=== PATIENT | female | born 1965 | race Caucasian/White ===

== ENCOUNTER → 2020-10-17 08:38 | Outpatient (CLI) | payer MEDICARE, SELFPAY ==
[2020-10-17 10:00] LABS: ALB/GLOB Ratio 1.1 RATIO (0.9-2.4); AST(SGOT) 17 U/L (15-37); Alanine Aminotransfer ALT/SGPT 18 U/L (13-56); Albumin, Serum 3.7 g/dL (3.2-5.0); Alkaline Phosphatase 85 U/L (45-117); Anion Gap 9 (5-15); BUN 11 mg/dL (7-18); BUN/Creat Ratio 14.1 RATIO (10-20); Chloride 106 mmol/L (98-107); Cholesterol 196 mg/dL (200); Creatinine, Serum 0.78 mg/dL (0.55-1.02); EST Glomerular Filtration Rate 81 mL/min (>60); Est Glom Filt Rate - Afr Amer 98 mL/min (>60); Globulin 3.5 g/dL (2.2-4.2); Glucose 109 mg/dL (74-106); High Density Lipoprotein 59 mg/dL; Potassium 3.6 mmol/L (3.5-5.1); Protein, Total 7.2 g/dL (6.4-8.2); Sodium Level 141 mmol/L (136-145); Thyroid Stim Hormone (TSH) 1.35 uIU/mL (0.358-3.74); Triglycerides 146 mg/dL; Very Low Density Lipoprotein 29 mg/dL (5-40)
[2020-10-23 09:04] LABS: Trileptal-Oxcarbazepine < 1 ug/mL (10-35)
== END ==
PROVIDERS: PCP Family Medicine; Referring Provider Family Medicine; Visit Provider Family Medicine
DX: E03.9 Hypothyroidism, unspecified (principal); Z79.899 Other long term (current) drug therapy; E78.5 Hyperlipidemia, unspecified
CPT/HCPCS: 36415; 80053; 80061; 82542; 84443

== ENCOUNTER → 2020-11-20 12:07 | Outpatient (CLI) | payer MEDICARE, SELFPAY ==
--- NOTE | 2020-11-20 12:11 | BI_ITS ---
MAMMOGRAPHY - BILATERAL SCREENING REASON FOR EXAM: Female, 55 years old. Routine annual screening examination. PERTINENT HISTORY: Non-contributory. Remote right excisional breast biopsy. TECHNIQUE: Digital bilateral breast jumana (3D mammographic acquisition) in the CC and MLO projections. 2-D mediolateral oblique (MLO) and craniocaudad (CC) views of both breasts were obtained. CAD: Full Field Digital Mammography with Computer Added Detection was performed. COMPARISON: Comparison is made with prior outside examination dated 02/19/2019. FINDINGS: Breast Composition: There are scattered areas of fibroglandular density. There are no dominant masses or suspicious calcifications. No other significant abnormalities are identified. There has been no significant change since the prior study. BI/SCRN MAMM (CAD)W/JUMANA BILAT IMPRESSION: Stable bilateral screening mammogram. Yearly follow-up mammogram recommended. (A) ASSESSMENT CATEGORY: BIRADS Category 1: Negative. A letter regarding these results will be sent to the patient by the facility within 30 days. Approximately 10% of breast cancers are not detected by mammography. A normal mammogram should not delay biopsy of a clinically suspicious abnormality. [id number] Electronically Signed: Jeff Crowder MD at 13:02 EDT , Service support ,
== END ==
PROVIDERS: PCP Family Medicine; Referring Provider Family Medicine; Visit Provider Family Medicine
DX: Z12.31 Encounter for screening mammogram for malignant neoplasm of breast (principal)
CPT/HCPCS: 77063; 77067

== ENCOUNTER 2021-11-06 08:26 | Outpatient (CLI) | payer MEDICARE, SELFPAY ==
[2021-11-06 09:23] LABS: Hematocrit 40.2 % (37-47); Mean Corp Hgb Conc 34.8 g/dL (32-36); Mean Corpuscular Hgb 29.5 pg (27.0-32.0); Mean Corpuscular Volume 84.6 fL (81-99); Mean Platelet Vol. 8.7 fl (6.2-12.0); Platelet Count 287 K/mm3 (150-450); RBC Distribution Width CV 12.7 % (11.6-14.6); RBC Distribution Width SD 39.3 fl (35.1-43.9); Red Blood Count 4.75 M/mm3 (4.2-5.4); White Blood Count 4.2 K/mm3 (4.4-11.0)
[2021-11-06 10:00] LABS: ALB/GLOB Ratio 1.1 RATIO (0.9-2.4); AST(SGOT) 21 U/L (15-37); Alanine Aminotransfer ALT/SGPT 17 U/L (13-56); Albumin, Serum 4.1 g/dL (3.2-5.0); Alkaline Phosphatase 77 U/L (45-117); Anion Gap 6 (5-15); BUN 12 mg/dL (7-18); BUN/Creat Ratio 14.4 RATIO (10-20); Calcium,Total 8.4 mg/dL (8.5-10.1); Chloride 106 mmol/L (98-107); Cholesterol 202 mg/dL (200); Creatinine, Serum 0.83 mg/dL (0.55-1.02); EST Glomerular Filtration Rate 75 mL/min (>60); Est Glom Filt Rate - Afr Amer 91 mL/min (>60); Globulin 3.6 g/dL (2.2-4.2); Glucose 98 mg/dL (74-106); High Density Lipoprotein 55 mg/dL; Potassium 3.5 mmol/L (3.5-5.1); Protein, Total 7.7 g/dL (6.4-8.2); Sodium Level 137 mmol/L (136-145); Triglycerides 174 mg/dL; Very Low Density Lipoprotein 35 mg/dL (5-40)
[2021-11-06 10:03] LABS: Carbamazepine (Tegretol) 13.5 ug/mL (4.0-12.0)
== END 2021-11-06 23:59 | disposition home or self-care (01) ==
LOC: LAB 08:31
PROVIDERS: PCP Family Medicine; Visit Provider Family Medicine
DX: E78.5 Hyperlipidemia, unspecified (principal); E03.9 Hypothyroidism, unspecified; Z79.899 Other long term (current) drug therapy
CPT/HCPCS: 36415; 80053; 80061; 80156; 84443; 85027

== ENCOUNTER → 2021-12-10 | Outpatient (CLI) | payer MEDICARE, SELFPAY ==
--- NOTE | 2021-12-10 15:00 | BI_ITS ---
MAMMOGRAPHY - BILATERAL SCREENING REASON FOR EXAM: Female, 56 years old. Routine annual screening examination. PERTINENT HISTORY: Grandmother with breast cancer. TECHNIQUE: Digital bilateral breast jumana (3D mammographic acquisition) in the CC and MLO projections. 2-D mediolateral oblique (MLO) and craniocaudad (CC) views of both breasts were obtained. CAD: Full Field Digital Mammography with Computer Added Detection was performed. COMPARISON: Comparison is made with prior study dated 11/20/2020. FINDINGS: Breast Composition: There are scattered areas of fibroglandular density. There are no dominant masses or suspicious calcifications. Stable benign appearing bilateral axillary nodes. No other significant abnormalities are identified. There has been no significant change since the prior study. BI/SCRN MAMM (CAD)W/JUMANA BILAT IMPRESSION: Stable bilateral screening mammogram. Yearly follow-up mammogram recommended. (A) ASSESSMENT CATEGORY: BIRADS Category 2: Benign. A letter regarding these results will be sent to the patient by the facility within 30 days. Approximately 10% of breast cancers are not detected by mammography. A normal mammogram should not delay biopsy of a clinically suspicious abnormality. [id number] Electronically Signed: Jeff Crowder MD at 8:16 EDT ,
== END | disposition home or self-care (01) ==
LOC: OPBI 14:50
PROVIDERS: PCP Family Medicine; Referring Provider Family Medicine; Visit Provider Family Medicine
DX: Z12.31 Encounter for screening mammogram for malignant neoplasm of breast (principal)
CPT/HCPCS: 77063; 77067

== ENCOUNTER → 2022-02-05 | Outpatient (CLI) | payer MEDICARE, SELFPAY ==
[2022-02-05 18:25] LABS: ALB/GLOB Ratio 1.2 RATIO (0.9-2.4); AST(SGOT) 17 U/L (15-37); Alanine Aminotransfer ALT/SGPT 17 U/L (13-56); Albumin, Serum 3.8 g/dL (3.2-5.0); Alkaline Phosphatase 75 U/L (45-117); Anion Gap 7 (5-15); BUN 21 mg/dL (7-18); BUN/Creat Ratio 27.5 RATIO (10-20); Calcium,Total 9.1 mg/dL (8.5-10.1); Chloride 108 mmol/L (98-107); Creatinine, Serum 0.76 mg/dL (0.55-1.02); EST Glomerular Filtration Rate 83 mL/min (>60); Est Glom Filt Rate - Afr Amer 100 mL/min (>60); Globulin 3.3 g/dL (2.2-4.2); Glucose 109 mg/dL (74-106); Potassium 3.8 mmol/L (3.5-5.1); Protein, Total 7.1 g/dL (6.4-8.2); Sodium Level 139 mmol/L (136-145)
== END | disposition home or self-care (01) ==
LOC: LAB 16:22
PROVIDERS: PCP Family Medicine; Visit Provider Family Medicine
DX: R79.89 Other specified abnormal findings of blood chemistry (principal); D72.819 Decreased white blood cell count, unspecified; Z79.899 Other long term (current) drug therapy
CPT/HCPCS: 36415; 80053

== ENCOUNTER 2022-03-06 13:35 | Emergency (ER) | payer MEDICARE, SELFPAY ==
[2022-03-06 13:37] VITALS: BP 128/69; PULSE 90; RESP 15; TEMP 35.8; O2SAT 98; BMI 27.3
--- NOTE | 2022-03-06 13:53 | RAD_ITS ---
STUDY: X-RAY CHEST REASON FOR EXAM: Female, 56 years old. Cough, shortness of breath TECHNIQUE: Single frontal view of the chest. COMPARISON: None. FINDINGS: The lungs are clear and expanded. There is no demonstrated pleural abnormality. Normal size heart. Normal mediastinum and hayn. Normal visualized pulmonary arteries. Normal visualized aortic arch and descending thoracic aorta. Normal visualized thoracic spine. Normal visualized ribs, clavicles, and shoulders. There is no demonstrated abnormality of the visualized soft tissue structures of the upper abdomen. RAD/Chest 1 View (Portable) IMPRESSION: Normal x-ray examination of the chest. Electronically Signed: Ailyn Zimmer MD at 14:33 EDT ,
--- NOTE | 2022-03-06 13:56 | EDS_ITS ---
HPI History of Present Illness Chief Complaint: Cough Informant: patient Onset/Context/Timing Onset: Days (4 days) Context: Gradual Onset Current Severity: Mild Maximum Severity: Mild Narrative Narrative: Patient presents secondary to cough, sore throat, shortness of breath. Patient states that 2 months ago she got the shingles shot and had nausea and vomiting after this. On Tuesday, 3 days ago, she got the second shingles shot. She again developed nausea and vomiting but this time also developed congestion, sore throat, cough. She does have history of asthma but states she does not have any more albuterol solution for her nebulizer. She tried using her albuterol MDI a couple times each day but states it was not helping her. [facility] Medical History Asthma Brain aneurysm Home Medications albuterol sulfate 2.5 mg/3 mL (0.083 %) solution for nebulization 2.5 mg (3 mL) inhalation Q4H PRN #25 vials 03/06/22 [Rx Last Taken Unknown] prednisone 20 mg tablet 40 mg PO DAILY #8 tabs 03/06/22 [Rx Last Taken Unknown] Allergy/AdvReac Type Severity Reaction Status Date / Time Penicillins [PCN] Allergy Anaphylaxis Verified 03/06/22 13:37 Sulfa (Sulfonamide Allergy Rash Verified 03/06/22 13:37 Antibiotics) erythromycin base AdvReac Upset Verified 03/06/22 13:37 Stomach Surgical History H/O brain surgery Social History Smoking Status: Never smoker ROS ROS ED Constitutional Constitutional ED: Denies chills or fever(s) Eyes Eyes: Denies change in vision or discharge from eye(s) ENT ENT ED: Reports sore throat and other Details: Congestion ; Denies discharge from eye(s) or rhinorrhea Cardiovascular Cardiovascular: Reports other Details: Lungs feel tight ; Denies chest pain or palpitations Respiratory/Chest Respiratory/Chest: Reports cough and dyspnea Gastrointestinal Gastrointestinal: Denies abdominal pain, diarrhea, nausea or vomiting Genitourinary Genitourinary ED: Denies difficulty urinating or dysuria Musculoskeletal Musculoskeletal: Denies back pain or extremity pain Integumentary Denies Abrasions or rash Neurologic Neurologic: Denies headache(s) or weakness Psychiatric Psychiatric: Denies anxiety or depression Allergic/Immunologic Allergic/Immunologic ED: Denies lip swelling or urticaria EXAM Physical Exam Const Vital Signs: 03/06/22 13:37 03/06/22 14:01 03/06/22 14:07 Temperature 96.4 F L Temperature Source Temporal Pulse Rate 90 88 Respiratory Rate 15 20 H Respiratory Effort Short of Breath Respiratory Depth Normal Respiratory Pattern Normal Normal Blood Pressure 128/69 H Blood Pressure Mean 88 Pulse Ox 98 Oxygen Delivery Method Room Air Room Air 03/06/22 15:37 03/06/22 16:00 Temperature Temperature Source Pulse Rate 96 Respiratory Rate 20 H Respiratory Effort Respiratory Depth Respiratory Pattern Normal Blood Pressure Blood Pressure Mean Pulse Ox 96 Oxygen Delivery Method Room Air Positive well nourished and well developed General Appearance ED: well developed HEENT Reports normocephalic and head/scalp atraumatic Eyes PERRL and EOMs intact bilaterally Neck supple Chest Wall inspection of chest normal and palpation of chest normal Resp normal respiratory effort and clear to auscultation bilaterally Cardio regular rate and regular rhythm GI non-tender Auscultation: hypoactive bowel sounds Palpation: soft Back/Spine no CVA tenderness Extremity normal to inspection Neuro oriented x3 and no sensory deficits noted Sensorium / Orientation: alert Motor Exam: strength 5/5 throughout Psych mental status grossly normal Skin no rashes or lesions noted MDM MDM MDM Narrative Medical decision making narrative: Patient was given DuoNeb treatment. COVID swab ordered along with portable chest x-ray. Radiography Chest X-Ray - ED: 1 View, Read by ED Physician, Normal, Heart, Lungs and Mediastinum Diagnostic Testing: Clinical Impression(s) from Imaging Studies Chest X-Ray 03/06/22 13:53 IMPRESSION: Normal x-ray examination of the chest. Electronically Signed: Ailyn Zimmer MD at 14:33 EDT , Treatment and Re-Evaluation Narrative: Purple chest x-ray per my interpretation reveals no focal infiltrate. Radiology interpretation is reviewed. COVID swab is negative. Patient advised nursing staff that she did feel better after the DuoNeb treatment but felt that she needed a couple more treatments. 2 additional albuterol treatments were given. At this time patient does feel improved. Lungs remain clear. She does feel slightly shaky from the albuterol. She will be given 4 additional days of prednisone and albuterol solution for her nebulizer. Discharge Plan Triage Chief Complaint: Cough ED Provider: Priscila Cruz Dx/Rx/DC Orders Clinical Impression: Viral URI, Asthma exacerbation Instructions: ED Asthma, Acute (Adult), ED URI, Viral, No Abx (Adult) Prescriptions: New albuterol sulfate 2.5 mg /3 mL (0.083 %) solution for nebulization 2.5 mg inhalation Q4H PRN Qty: 25 0RF Rx Instructions: Use q4 hours and PRN for wheezing prednisone 20 mg tablet 40 mg PO DAILY Qty: 8 0RF Primary Care Provider: Shima Andujar Referrals: Shima Andujar, [Primary Care Provider] - 3-5 Days if not improving Disposition Disposition: Home, Self Care
[2022-03-06 14:01] VITALS: PULSE 88; RESP 20
[2022-03-06] MEDS: Ipratropium/Albuterol Sulfate 3 ML AMPUL.NEB INHALATION (14:01)
[2022-03-06 14:07] VITALS: O2SAT 98
[2022-03-06] MEDS: predniSONE 20 MG Tablet 40 MG PO (14:09)
[2022-03-06 15:37] VITALS: PULSE 96; RESP 20
[2022-03-06] MEDS: Albuterol 2.5 MG/3 ML VIAL.NEB. INHALATION (15:37)
[2022-03-06 16:00] VITALS: O2SAT 96
== END 2022-03-06 16:49 | disposition home or self-care (01) ==
PROVIDERS: Emergency Provider Emergency Medicine; PCP Family Medicine; Visit Provider Emergency Medicine
DX: J06.9 Acute upper respiratory infection, unspecified (principal); J45.901 Unspecified asthma with (acute) exacerbation
CPT/HCPCS: 71045; 87811; 94640; 99283

== ENCOUNTER → 2022-04-08 | Outpatient (CLI) | payer MEDICARE, SELFPAY ==
[2022-04-08 16:20] LABS: Hematocrit 38.4 % (37-47); Hemoglobin 13.1 g/dL (12.0-15.0); Mean Corp Hgb Conc 34.1 g/dL (32-36); Mean Corpuscular Hgb 29.6 pg (27.0-32.0); Mean Corpuscular Volume 86.7 fL (81-99); Mean Platelet Vol. 8.7 fl (6.2-12.0); Platelet Count 286 K/mm3 (150-450); RBC Distribution Width CV 12.6 % (11.6-14.6); RBC Distribution Width SD 40.1 fl (35.1-43.9); Red Blood Count 4.43 M/mm3 (4.2-5.4)
[2022-04-08 19:32] LABS: Carbamazepine (Tegretol) 11.2 ug/mL (4.0-12.0)
== END | disposition home or self-care (01) ==
LOC: LAB 15:56
PROVIDERS: PCP Family Medicine; Referring Provider Family Medicine; Visit Provider Family Medicine
DX: R78.89 Finding of other specified substances, not normally found in blood (principal); D72.819 Decreased white blood cell count, unspecified
CPT/HCPCS: 36415; 80156; 85027

== ENCOUNTER → 2022-11-11 | Outpatient (CLI) | payer MEDICARE, SELFPAY ==
[2022-11-11 08:45] LABS: Hematocrit 39.1 % (37-47); Hemoglobin 13.4 g/dL (12.0-15.0); Mean Corp Hgb Conc 34.3 g/dL (32-36); Mean Corpuscular Hgb 29.5 pg (27.0-32.0); Mean Corpuscular Volume 85.9 fL (81-99); Mean Platelet Vol. 8.9 fl (6.2-12.0); Platelet Count 245 K/mm3 (150-450); RBC Distribution Width CV 12.4 % (11.6-14.6); RBC Distribution Width SD 38.7 fl (35.1-43.9); Red Blood Count 4.55 M/mm3 (4.2-5.4); White Blood Count 4.4 K/mm3 (4.4-11.0)
[2022-11-11 09:34] LABS: ALB/GLOB Ratio 1.3 RATIO (0.9-2.4); AST(SGOT) 20 U/L (15-37); Alanine Aminotransfer ALT/SGPT 18 U/L (13-56); Alkaline Phosphatase 81 U/L (45-117); Anion Gap 6 (5-15); BUN 24 mg/dL (7-18); BUN/Creat Ratio 27.6 RATIO (10-20); Calcium,Total 9.1 mg/dL (8.5-10.1); Chloride 107 mmol/L (98-107); Cholesterol 177 mg/dL (200); Creatinine, Serum 0.87 mg/dL (0.55-1.02); EST Glomerular Filtration Rate 71 mL/min (>60); Est Glom Filt Rate - Afr Amer 86 mL/min (>60); Globulin 3.1 g/dL (2.2-4.2); Glucose 111 mg/dL (74-106); High Density Lipoprotein 61 mg/dL; Potassium 3.5 mmol/L (3.5-5.1); Protein, Total 7.1 g/dL (6.4-8.2); Sodium Level 137 mmol/L (136-145); T4 Free Direct 1.19 ng/dL (0.76-1.46); Thyroid Stim Hormone (TSH) 1.73 uIU/mL (0.358-3.74); Triglycerides 137 mg/dL; Very Low Density Lipoprotein 27 mg/dL (5-40)
[2022-11-11 11:57] LABS: Carbamazepine (Tegretol) 12.6 ug/mL (4.0-12.0)
[2022-11-14 15:07] LABS: Vitamin D 1,25-Dihydroxy 59.1 pg/mL (24.8-81.5)
== END | disposition home or self-care (01) ==
PROVIDERS: PCP Family Medicine; Visit Provider Family Medicine
DX: E03.9 Hypothyroidism, unspecified (principal); Z79.899 Other long term (current) drug therapy; E78.5 Hyperlipidemia, unspecified; F41.9 Anxiety disorder, unspecified
CPT/HCPCS: 36415; 80053; 80061; 80156; 82652; 84439; 84443; 84481; 85027

== ENCOUNTER → 2023-01-03 | Outpatient (CLI) | payer MEDICARE, SELFPAY ==
--- NOTE | 2023-01-03 14:39 | BI_ITS ---
MAMMOGRAPHY - BILATERAL SCREENING REASON FOR EXAM: Female, 57 years old. Routine annual screening examination. PERTINENT HISTORY: Grandmother with breast cancer. Remote right excisional breast biopsy. TECHNIQUE: Digital bilateral breast jumana (3D mammographic acquisition) in the CC and MLO projections. 2-D mediolateral oblique (MLO) and craniocaudad (CC) views of both breasts were obtained. CAD: Full Field Digital Mammography with Computer Added Detection was performed. COMPARISON: Comparison is made with prior study dated December 10, 2021 and November 20, 2020. FINDINGS: Breast Composition: There are scattered areas of fibroglandular density. There are no dominant masses or suspicious calcifications. Benign appearing fat-containing axillary lymph nodes. No other significant abnormalities are identified. There has been no significant change since the prior study. BI/SCRN MAMM (CAD)W/JUMANA BILAT IMPRESSION: Stable bilateral screening mammogram. Yearly follow-up mammogram recommended. (A) ASSESSMENT CATEGORY: BIRADS Category 2: Benign. A letter regarding these results will be sent to the patient by the facility within 30 days. Approximately 10% of breast cancers are not detected by mammography. A normal mammogram should not delay biopsy of a clinically suspicious abnormality. [id number] Electronically Signed: Jeff Crowder MD at 15:35 EDT ,
[2023-01-03 15:48] LABS: Thyroid Stim Hormone (TSH) 3.33 uIU/mL (0.358-3.74)
== END | disposition home or self-care (01) ==
LOC: OPBI 14:37
PROVIDERS: PCP Family Medicine; Referring Provider Family Medicine; Visit Provider Family Medicine
DX: Z12.31 Encounter for screening mammogram for malignant neoplasm of breast (principal); E03.9 Hypothyroidism, unspecified; Z80.3 Family history of malignant neoplasm of breast
CPT/HCPCS: 36415; 77063; 77067; 84443

== ENCOUNTER 2023-01-20 15:10 | Emergency (ER) | payer MEDICARE, SELFPAY ==
[2023-01-20 15:11] VITALS: BP 148/103; PULSE 108; RESP 16; TEMP 36.4; O2SAT 99
[2023-01-20 15:22] VITALS: BMI 29.4
--- NOTE | 2023-01-20 15:37 | EX.ED.DYSGE1 ---
HPI History of Present Illness Chief Complaint: Mental Health Informant: patient Onset/Context/Timing Onset: Weeks (2) Context: Gradual Onset Timing: Intermittent Quality: Shaky, off balance Location: Generalized Worsened by: Stress Relieved by: Nothing Narrative Narrative: Presents with anxiety, blurred vision, shakiness, and dizziness that has been getting worse over the last 2 weeks. Patient states it comes and goes. Patient states she saw her eye doctor recently and her blurry vision is not from the eyes. Patient states she started a new medicine 3 weeks ago and thinks this may be related. Patient states her vision feels blurry and is worse whenever she is under stress. Patient states her dizziness feels like she is off balance and shaky. Patient states she is having difficulty walking due to the shakiness and dizziness. Patient states she has been feeling very anxious. Patient states she is undergoing a lot of stress at home. Patient denies any suicidal or homicidal ideations. PFSH PFS Medical History Asthma Brain aneurysm Home Medications albuterol sulfate 2.5 mg/3 mL (0.083 %) solution for nebulization 2.5 mg (3 mL) inhalation Q4H PRN #25 vials 03/06/22 [Rx Last Taken Unknown] prednisone 20 mg tablet 40 mg (2 x 20 mg) PO DAILY #8 tabs 03/06/22 [Rx Last Taken Unknown] lorazepam 0.5 mg tablet 0.5 mg PO TID PRN PRN anxiety #10 tabs 01/20/23 [Rx Last Taken Unknown] Allergy/AdvReac Type Severity Reaction Status Date / Time Penicillins [PCN] Allergy Anaphylaxis Verified 01/20/23 15:27 Sulfa (Sulfonamide Allergy Rash Verified 01/20/23 15:27 Antibiotics) erythromycin base AdvReac Upset Verified 01/20/23 15:27 Stomach Surgical History H/O brain surgery Social History Smoking Status: Never smoker ROS ROS ED Constitutional Constitutional ED: Denies chills or fever(s) Eyes Eyes: Reports blurry vision; Denies diplopia ENT ENT ED: Denies rhinorrhea or sore throat Cardiovascular Cardiovascular: Denies chest pain or palpitations Respiratory/Chest Respiratory/Chest: Denies cough or dyspnea Gastrointestinal Gastrointestinal: Reports nausea; Denies vomiting Genitourinary Genitourinary ED: Denies dysuria or hematuria Musculoskeletal Musculoskeletal: Denies back pain or neck pain Integumentary Denies abscess or rash Neurologic Neurologic: Reports headache(s) and weakness Psychiatric Psychiatric: Reports anxiety; Denies suicidal ideation or suicidal thoughts Allergic/Immunologic Allergic/Immunologic ED: Denies mouth swelling or urticaria EXAM Physical Exam Const Vital Signs: 01/20/23 15:11 01/20/23 15:40 01/20/23 17:24 Temperature 97.6 F L Temperature Source Temporal Pulse Rate 108 H 93 95 Respiratory Rate 16 20 H 25 H Blood Pressure 148/103 H 146/85 H 157/73 H Blood Pressure Mean 118 105 101 Pulse Ox 99 98 98 Oxygen Delivery Method Room Air Room Air 01/20/23 19:02 Temperature Temperature Source Pulse Rate 95 Respiratory Rate 16 Blood Pressure 131/89 H Blood Pressure Mean 103 Pulse Ox Oxygen Delivery Method Room Air Positive well nourished and well developed General Appearance ED: well developed and NAD HEENT Reports moist mucous membranes Neck supple and no JVD Resp normal respiratory effort and clear to auscultation bilaterally Cardio regular rate, regular rhythm and no murmurs GI normal to inspection, nondistended, normoactive bowel sounds and non-tender Palpation: soft Extremity normal to inspection General Extremety ED: Negative for edema or tenderness General Extremity: Negative for edema Neuro oriented x3, CN's II-XII intact bilaterally and no sensory deficits noted Sensorium / Orientation: alert Motor Exam: strength 5/5 throughout Psych Mood & Affect: anxious Skin no rashes or lesions noted MDM MDM MDM Narrative Medical decision making narrative: Differential diagnosis includes electrolyte abnormality, acute kidney injury, dehydration, stress, anxiety, intracranial bleeding, cardiac dysrhythmia, cardiac ischemia, and medication side effect. EKG will be obtained to assess for cardiac dysrhythmia and cardiac ischemia. CT scan of the brain will be obtained to assess for intracranial bleeding. CBC will be obtained to assess for leukocytosis and anemia. Basic metabolic profile will be obtained to assess for electrolyte abnormality and kidney function. Urinalysis will be obtained to assess for urinary tract infection. Urine tox screen will be obtained to assess for substance abuse. Serum alcohol level will be obtained to assess for alcohol intoxication. Lab Data Attestation: I reviewed the patient's lab results. Lab results narrative: CBC was reviewed and was within normal limits. Basic metabolic profile was reviewed. Potassium was slightly low at 3.0. The remainder was essentially within normal limits. Urinalysis was reviewed. There is no evidence of urinary tract infection or hematuria. Urine tox screen was reviewed and was positive for MDMA. Serum alcohol level was reviewed and was negative. High-sensitivity troponin was reviewed and was normal at 4. Labs: Laboratory Results - last 24 hr 01/20/23 01/20/23 15:55 19:00 WBC 4.8 RBC 4.51 Hgb 13.4 Hct 38.1 MCV 84.5 MCH 29.7 MCHC 35.2 RDW Std Deviation 38.2 RDW Coeff of Chan 12.5 Plt Count 223 MPV 8.9 Immature Gran % (Auto) 0.200 Neut % (Auto) 64.5 Lymph % (Auto) 23.4 [place] % (Auto) 8.6 Eos % (Auto) 2.7 Baso % (Auto) 0.6 Absolute Neuts (auto) 3.1 Absolute Lymphs (auto) 1.12 Nucleated RBC % 0 Sodium 140 Potassium 3.0 L Chloride 109 H Carbon Dioxide 19.0 L Anion Gap 12 BUN 15 Creatinine 0.84 Estim Creat Clear Calc 53.08 Est GFR (MDRD) Af Amer 90 Est GFR (MDRD) Non-Af 74 BUN/Creatinine Ratio 17.9 Glucose 117 H Calcium 9.2 Troponin I High Sens 4 Urine Color Yellow Urine Clarity Clear Urine pH 7.0 Ur Specific [place] 1.010 Urine Protein Negative Urine Glucose (UA) Normal Urine Ketones Negative Urine Occult Blood Negative Urine Nitrite Negative Urine Bilirubin Negative Urine Urobilinogen Normal Ur Leukocyte Esterase Negative Urine RBC 0 SEEN Urine WBC 0 SEEN Ur Squamous Epith Cells 0 SEEN Urine Bacteria 0 SEEN Urine Mucus 0 SEEN Urine Opiates Screen NEGATIVE Urine Methadone Screen NEGATIVE Ur Barbiturates Screen NEGATIVE Ur Phencyclidine Scrn NEGATIVE Ur Amphetamines Screen NEGATIVE MDMA (Ecstasy) Screen POSITIVE H U Benzodiazepines Scrn NEGATIVE Urine Cocaine Screen NEGATIVE U Cannabinoids Screen NEGATIVE Ur Drug Screen Comment Ethyl Alcohol < 3.0 Radiography Diagnostic Testing: Clinical Impression(s) from Imaging Studies Brain CT 01/20/23 15:43 IMPRESSION: Postsurgical changes in the right parietal lobe. No evidence for obstructive hydrocephalus, mass or acute bleed Electronically Signed: Cristian Young MD at 16:42 EDT , CT scan of the brain was obtained. There are postsurgical changes in the right parietal lobe. There is no acute infarct or bleed. There is no mass or hydrocephalus. This was interpreted by the radiologist and was independently reviewed by myself. EKG Initial EKG: Attestation: I personally reviewed and interpreted this EKG as follows: Interpretation: Sinus Rhythm (87) and No Acute Injury Pattern Comments: EKG was obtained. On my independent interpretation, it showed a normal sinus rhythm with a rate of 87. FL interval, QRS interval, and QTc intervals were all normal. [place] was normal. There are no acute ST or T wave changes. Prior EKG tracings: not available for review Prior: No Prior Treatment and Re-Evaluation :: Patient was given a dose of Ativan here initially. Patient was also given a dose of oral potassium. Patient is feeling better on reevaluation. Patient is not suicidal or homicidal. Patient was advised of her findings. Patient was given a prescription for a short course of Ativan to take as needed. Patient was instructed to follow-up with her primary care physician for further evaluation. Patient was also given a referral for the counseling center. Patient understood and was agreeable with the plan. All questions were answered. Discharge Plan Triage Chief Complaint: Mental Health ED Provider: Shoaib Harvey Dx/Rx/DC Orders Clinical Impression: Acute anxiety Instructions: ED Anxiety Reaction Prescriptions: New lorazepam [lorazepam] 0.5 mg tablet 0.5 mg PO TID PRN PRN (Reason: anxiety) Qty: 10 0RF No Action albuterol sulfate 2.5 mg /3 mL (0.083 %) solution for nebulization 2.5 mg inhalation Q4H PRN Qty: 25 0RF Rx Instructions: Use q4 hours and PRN for wheezing prednisone 20 mg tablet 40 mg PO DAILY Qty: 8 0RF Primary Care Provider: Rigo Rahman Referrals: Counseling,Center [Group of Physicians] - 3-5 Days Rigo Rahman MD [Primary Care Provider] - 5-7 Days Disposition Disposition: Home, Self Care
[2023-01-20 15:40] VITALS: BP 146/85; PULSE 93; RESP 20; O2SAT 98
--- NOTE | 2023-01-20 15:43 | CT_ITS ---
STUDY: CT BRAIN WITHOUT CONTRAST REASON FOR EXAM: Female, 57 years old. Headache RADIATION DOSAGE (If Supplied By Facility): CTDIvol = ( 44.99 ) mGy, DLP = ( 745.49 ) mGycm TECHNIQUE: Transaxial CT imaging of the brain was performed without administration of intravenous contrast material. Individualized dose optimization techniques were used for this CT. COMPARISON: No relevant priors. FINDINGS: Normal soft tissue structures. 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 Small metallic structure is noted noted within the soft tissues at the operative site. Normal size ventricles and extra-axial spaces for the patient''s age. Normal white matter tracts of the cerebral hemispheres. Normal basal ganglia and thalami. Normal brainstem. Normal cerebellum. There is no intracranial hemorrhage. There are no findings of an acute ischemic infarction. Normal visualized paranasal sinuses. CT/Brain/Head without Contrast IMPRESSION: Postsurgical changes in the right parietal lobe. No evidence for obstructive hydrocephalus, mass or acute bleed Electronically Signed: Cristian Young MD at 16:42 EDT ,
--- NOTE | 2023-01-20 15:44 | EKG12_ITS ---
Test Reason : ANXIETY Blood Pressure : / mmHG Vent. Rate : 087 BPM Atrial Rate : 087 BPM P-R Int : 180 ms QRS Dur : 096 ms QT Int : 384 ms P-R-T Axes : 037 -18 011 degrees QTc Int : 462 ms Normal sinus rhythm Normal ECG Confirmed by DAVID HARDING, YAYO ([id number]), general expeditor PALLAVI ORTIZ ([id number]) on 01/24/2023 12:58:15 PM Referred By: Confirmed By:YAYO HERNANDEZ MD
--- NOTE | 2023-01-20 15:50 | ED.RN ---
PT REQUESTS THIS RN CALL FRIEND SUSAN HWANG TO ATTEMPT TO FIND CELL PHONE. THIS RN CALLED MS. HWANG AT [phone]. UNABLE TO LOCATE CELL PHONE.
[2023-01-20] MEDS: LORazepam 2 MG/ML Syringe 1 MG IV (16:03)
[2023-01-20 16:17] LABS: Absolute Lymphocyte Count 1.12 X10^3/uL (0.83-4.51); Absolute Neutrophil Count 3.1 X10^3/uL (2.0-7.7); Basophil# 0.03 X10^3/uL; Basophil% 0.6 % (0-1); Eosinophil# 0.13 X10^3/uL; Eosinophils% 2.7 % (0-5); Hematocrit 38.1 % (37-47); Hemoglobin 13.4 g/dL (12.0-15.0); Lymphocyte # 1.12 X10^3/ul (0.83-4.51); Lymphocyte % 23.4 % (19-41); Mean Corp Hgb Conc 35.2 g/dL (32-36); Mean Corpuscular Hgb 29.7 pg (27.0-32.0); Mean Corpuscular Volume 84.5 fL (81-99); Mean Platelet Vol. 8.9 fl (6.2-12.0); Monocyte# 0.41 X10^3/uL; Monocyte% 8.6 % (0-10); NRBC Flagged by Analyzer 0 % (0-5); Neutrophil # 3.09 X10^3/uL (2.7-7.7); Neutrophil % 64.5 % (47-70); Platelet Count 223 K/mm3 (150-450); RBC Distribution Width CV 12.5 % (11.6-14.6); RBC Distribution Width SD 38.2 fl (35.1-43.9); Red Blood Count 4.51 M/mm3 (4.2-5.4); White Blood Count 4.8 K/mm3 (4.4-11.0)
[2023-01-20 16:28] LABS: Alcohol, Blood (Medical)-Serum < 3.0 mg/dL
[2023-01-20 16:36] LABS: Anion Gap 12 (5-15); BUN 15 mg/dL (7-18); BUN/Creat Ratio 17.9 RATIO (10-20); Calcium,Total 9.2 mg/dL (8.5-10.1); Chloride 109 mmol/L (98-107); Creatinine, Serum 0.84 mg/dL (0.55-1.02); EST Glomerular Filtration Rate 74 mL/min (>60); Est Glom Filt Rate - Afr Amer 90 mL/min (>60); Estimated Creatinine Clearance 53.08 ml/min; Glucose 117 mg/dL (74-106); Sodium Level 140 mmol/L (136-145); Troponin-I HS 4 pg/mL (3.0-54.0)
[2023-01-20 17:24] VITALS: BP 157/73; PULSE 95; RESP 25; O2SAT 98
[2023-01-20] MEDS: Potassium Chloride Oral Tablet 20 MEQ 40 MEQ PO (17:43)
[2023-01-20 19:02] VITALS: BP 131/89; PULSE 95; RESP 16
[2023-01-20 19:09] LABS: Bacteria 0 SEEN /hpf (None Seen); Mucous, Urine 0 SEEN /hpf (<or=2+); Red Blood Cells-Urine 0 SEEN /hpf (0-5); Squamous Epithelial Cells - UA 0 SEEN /hpf (5-10); White Blood Cells 0 SEEN /hpf (0-5)
[2023-01-20 19:18] LABS: Color, Urine Yellow (Yellow); Glucose, Dipstick Normal (Normal); Ketone-Dipstick Negative (Negative); Leukocyte Esterase-Dipstick Negative /ul (Negative); Nitrite-Dipstick Negative (Negative); Occult Blood-Urine Negative /ul (Negative); Protein-Dipstick Negative (Negative); Urine Bilirubin Dipstick Negative (Negative); Urine Clarity Clear (Clear); Urine Urobilinogen Normal (Normal)
[2023-01-20 19:36] LABS: Amphetamine Urine VISTA NEGATIVE (<1000 ng/mL); Barbiturate Urine VISTA NEGATIVE (< 200 ng/mL); Benzodiazepine Urine VISTA NEGATIVE (< 200 ng/mL); Cocaine Urine VISTA NEGATIVE (< 300 ng/mL); Ecstacy Urine VISTA POSITIVE (< 500 ng/mL); Methadone Urine VISTA NEGATIVE (< 300 ng/mL); PCP Urine VISTA NEGATIVE (< 25 ng/mL); THC Urine VISTA NEGATIVE (< 50 ng/mL); Vista UDS pH Range 7
[2023-01-20 20:29] VITALS: BP 144/78; PULSE 95; RESP 23
[2023-01-20 20:30] VITALS: BP 144/78; PULSE 95; RESP 23
--- NOTE | 2023-01-20 20:31 | ED.RN ---
THIS RN CALLED [facility] TO [employer]PER[employer] PT PER PT REQUEST.
== END 2023-01-20 20:31 | disposition home or self-care (01) ==
PROVIDERS: Emergency Provider Emergency Medicine; PCP Family Medicine; Visit Provider Emergency Medicine
DX: F41.9 Anxiety disorder, unspecified (principal); J45.909 Unspecified asthma, uncomplicated; Z79.899 Other long term (current) drug therapy; E87.6 Hypokalemia
CPT/HCPCS: 70450; 80048; 80307; 81001; 82077; 84484; 85025; 93005; 96374; 99285; P9612; A4216

== ENCOUNTER → 2023-03-02 | Outpatient (CLI) | payer MEDICARE, SELFPAY ==
[2023-03-02 18:36] LABS: Thyroid Stim Hormone (TSH) 3.36 uIU/mL (0.358-3.74)
== END | disposition home or self-care (01) ==
LOC: MFPLAB 15:33
PROVIDERS: PCP Family Medicine; Visit Provider Family Medicine
DX: E03.9 Hypothyroidism, unspecified (principal)
CPT/HCPCS: 36415; 84443

== ENCOUNTER → 2023-03-09 | Outpatient (CLI) | payer MEDICARE, SELFPAY ==
[2023-03-09 17:43] LABS: AST(SGOT) 39 U/L (15-37); Alanine Aminotransfer ALT/SGPT 37 U/L (13-56)
== END | disposition home or self-care (01) ==
LOC: MFPLAB 15:33
PROVIDERS: PCP Family Medicine; Visit Provider Family Medicine
DX: B35.1 Tinea unguium (principal)
CPT/HCPCS: 36415; 84450; 84460

== ENCOUNTER → 2023-11-25 | Outpatient (CLI) | payer MEDICARE, SELFPAY ==
[2023-11-25 11:04] LABS: Hematocrit 41.4 % (37-47); Hemoglobin 14.3 g/dL (12.0-15.0); Mean Corp Hgb Conc 34.5 g/dL (32-36); Mean Corpuscular Hgb 29.4 pg (27.0-32.0); Mean Corpuscular Volume 85.2 fL (81-99); Mean Platelet Vol. 9.1 fl (6.2-12.0); Platelet Count 282 K/mm3 (150-450); RBC Distribution Width CV 12.3 % (11.6-14.6); RBC Distribution Width SD 38.1 fl (35.1-43.9); Red Blood Count 4.86 M/mm3 (4.2-5.4); White Blood Count 5.2 K/mm3 (4.4-11.0)
[2023-11-25 11:43] LABS: Carbamazepine (Tegretol) 14.2 ug/mL (4.0-12.0)
[2023-11-25 11:47] LABS: ALB/GLOB Ratio 1.1 RATIO (0.9-2.4); AST(SGOT) 29 U/L (15-37); Alanine Aminotransfer ALT/SGPT 21 U/L (13-56); Alkaline Phosphatase 82 U/L (45-117); Anion Gap 7 (5-15); BUN 15 mg/dL (7-18); BUN/Creat Ratio 15.7 RATIO (10-20); Calcium,Total 9.3 mg/dL (8.5-10.1); Chloride 109 mmol/L (98-107); Cholesterol 230 mg/dL (200); Creatinine, Serum 0.96 mg/dL (0.55-1.02); EST Glomerular Filtration Rate 64 mL/min (>60); Est Glom Filt Rate - Afr Amer 77 mL/min (>60); Globulin 3.8 g/dL (2.2-4.2); Glucose 137 mg/dL (74-106); High Density Lipoprotein 58 mg/dL; Potassium 3.9 mmol/L (3.5-5.1); Protein, Total 7.8 g/dL (6.4-8.2); Sodium Level 138 mmol/L (136-145); T4 Free Direct 0.97 ng/dL (0.76-1.46); Thyroid Stim Hormone (TSH) 6.31 uIU/mL (0.358-3.74); Triglycerides 201 mg/dL; Very Low Density Lipoprotein 40 mg/dL (5-40)
== END | disposition home or self-care (01) ==
LOC: LAB 10:34
PROVIDERS: PCP Nurse Practitioner Family; Referring Provider Nurse Practitioner Family; Visit Provider Nurse Practitioner Family
DX: E78.5 Hyperlipidemia, unspecified (principal); G40.909 Epilepsy, unspecified, not intractable, without status epilepticus; E03.9 Hypothyroidism, unspecified
CPT/HCPCS: 36415; 80053; 80061; 80156; 84439; 84443; 85027

== ENCOUNTER 2023-12-05 21:03 | Emergency (ER) | payer MEDICARE, SELFPAY ==
[2023-12-05 21:04] VITALS: BP 135/110; PULSE 106; RESP 16; TEMP 36.3; O2SAT 99; BMI 28.3
--- NOTE | 2023-12-06 00:35 | EX.ED.DYSGE1 ---
HPI History of Present Illness Chief Complaint: Anxiety Informant: patient Narrative Narrative: Patient presents because of an episode where her vision goes blurry to the point where she cannot see, she states these episodes been occurring since she had medication changes which include discontinuation of her Xanax for anxiety and buspirone 3 times daily for the anxiety. She states that her , she is a brain aneurysm survivor, and she has trouble driving distances all of this contributes to her anxiety. She suggests that these episodes occur during periods of stress. Tonight, her vision has still not gone back to normal and is more blurry to the left. This has happened before. She states Dr. Rahman changed these medications but she no longer sees him and now is seeing Sudeep Anuj, saying that her primary reason for coming here is do you have any ideas about what we can do so that I do not have any more episodes of blurry vision? She states she was seen here before for this, indicating that it was 2 or 3 months ago but she cannot remember. She thinks it was 2 to 3 months ago that the medications were changed. [facility] Medical History Asthma Brain aneurysm Chronic bronchitis Chronic sinus complaints Decreased peripheral vision Frequent headaches History of blood clots History of blood transfusion Hyperlipidemia Seasonal allergies Seizures Stroke Home Medications albuterol sulfate 90 mcg/actuation aerosol inhaler 2 inh inhalation Q4H PRN shortness of breath or wheezing 05/26/23 [History Last Taken Unknown] ascorbic acid (vitamin C) 500 mg capsule 500 mg PO DAILY 05/26/23 [History Last Taken Unknown] cetirizine 10 mg tablet 10 mg PO HS PRN allergy symptoms 05/26/23 [History Last Taken Unknown] cholecalciferol (vitamin D3) 25 mcg (1,000 unit) capsule 25 mcg PO DAILY 05/26/23 [History Last Taken Unknown] fexofenadine 60 mg tablet (Susan Allergy) 60 mg PO BID PRN Allergies 05/26/23 [History Last Taken Unknown] flaxseed oil 1,000 mg capsule 1,000 mg PO DAILY 05/26/23 [History Last Taken Unknown] lactobacillus combination no.9 4 billion cell capsule (Adult 50 Plus Probiotic) 4,000 mmu cells PO DAILY 05/26/23 [History Last Taken Unknown] mecobalamin (vitamin B12) 1,000 mcg chewable tablet 1,000 mcg PO DAILY 05/26/23 [History Last Taken Unknown] naproxen 500 mg tablet 500 mg PO BID PRN pain 05/26/23 [History Last Taken Unknown] omeprazole 40 mg capsule,delayed release 40 mg PO DAILY 05/26/23 [History Last Taken Unknown] promethazine 25 mg tablet 25 mg PO Q6H PRN nausea and vomiting 05/26/23 [History Last Taken Unknown] zinc gluconate 50 mg tablet 50 mg PO DAILY 05/26/23 [History Last Taken Unknown] fenofibrate 160 mg tablet 160 mg PO DAILY #90 tabs 06/28/23 [Rx Last Taken Unknown] hydroxyzine HCl 25 mg tablet 25 mg PO BID #180 tabs 06/28/23 [Rx Last Taken Unknown] simvastatin 80 mg tablet 80 mg PO DAILY #90 tabs 06/28/23 [Rx Last Taken Unknown] fluticasone propionate 50 mcg/actuation nasal spray,suspension (Flonase Allergy Relief) 2 spray intranasal DAILY #16 grams 07/07/23 [Rx Last Taken Unknown] buspirone 7.5 mg tablet 7.5 mg PO TID 12/05/23 [History Last Taken Unknown] levothyroxine 100 mcg tablet 100 mcg PO DAILY 12/05/23 [History Last Taken Unknown] trazodone 100 mg tablet 100 mg PO QHS 12/06/23 [History Last Taken Unknown] Allergy/AdvReac Type Severity Reaction Status Date / Time Penicillins (PCN) Allergy Anaphylaxis Verified 12/05/23 21:04 Sulfa (Sulfonamide Allergy Rash Verified 12/05/23 21:04 Antibiotics) erythromycin base AdvReac Upset Verified 12/05/23 21:04 Stomach Family History Mother , Due to brain aneurysm Diabetes Heart disease Hypertension Father , Due to brain aneurysm Diabetes Heart disease Myocardial infarction Hyperlipidemia Brother Diabetes Hypertension Kidney disease Grandfather Brain aneurysm Surgical History H/O brain surgery H/O tracheostomy Social History household members: none current occupational status: disabled 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 Smoking Status: Never smoker Electronic Cigarette Use: not used alcohol intake: current alcohol intake frequency: holidays/special occasions only substance use type: does not use do you feel safe at home: Yes ROS ROS ED Constitutional Constitutional ED: Denies chills or fever(s) Eyes Eyes: Reports as per HPI, blurry vision and change in vision; Denies diplopia ENT ENT ED: Denies rhinorrhea or sore throat Cardiovascular Cardiovascular: Denies chest pain or palpitations Respiratory/Chest Respiratory/Chest: Denies cough or dyspnea Gastrointestinal Gastrointestinal: Denies abdominal pain, diarrhea, nausea or vomiting Genitourinary Genitourinary ED: Denies dysuria or hematuria Musculoskeletal Musculoskeletal: Denies back pain or neck pain Integumentary Denies abscess or rash Neurologic Neurologic: Denies headache(s), paresthesias or weakness Psychiatric Psychiatric: Reports anxiety; Denies suicidal thoughts EXAM Physical Exam Const Vital Signs: 12/05/23 21:04 12/06/23 01:25 Temperature 97.3 F L Temperature Source Temporal Pulse Rate 106 H 88 Respiratory Rate 16 17 Blood Pressure 135/110 H 142/79 H Blood Pressure Mean 118 100 Pulse Ox 99 99 Oxygen Delivery Method Room Air Positive well nourished and well developed General Appearance ED: well developed and NAD HEENT Reports moist mucous membranes normocephalic and atraumatic Eyes PERRL and EOMs intact bilaterally Neck full ROM and supple Resp normal respiratory effort and clear to auscultation bilaterally Cardio regular rate, regular rhythm and no murmurs GI non-tender and non-distended Auscultation: normoactive bowel sounds Palpation: soft Back/Spine no CVA tenderness General Back: other FROM Extremity normal to inspection General Extremety ED: Negative for edema, pulses abnormal or tenderness General Extremity: Negative for edema or pulses abnormal Neuro oriented x3, CN's II-XII intact bilaterally and no sensory deficits noted Sensorium / Orientation: awake and alert Motor Exam: strength 5/5 throughout Skin no rashes or lesions noted and no wounds MDM MDM MDM Narrative Medical decision making narrative: I reviewed old records briefly. The last ER visit she had here was in December 2022, which was 11 months ago. It was for the reasons she suggest, anxiety, blurry vision, and medication changes recently. Therefore her medicines were changed over a year ago. She had a brain CT that was negative. When asking her about the aneurysm, she states she had surgery on it 30 years ago, and it affected her vision. Since she has been getting the symptoms she has not followed up with anyone with neurosurgery as she does not usually follow routinely with anyone. I recommended doing CT angiography and some labs to rule out medical causes of her blurry vision. She is amenable. When I discussed the fact that the last ER visit was 11 months ago, she states that she had symptoms of vision changes off and on for couple months but then she had a period time where she did not have any problems and now it has been there for 2 or 3 months again. As I discussed with her the differential includes seizure activity that could be coming from the brain in the area where she had problems. She states not only did she have an aneurysm surgery but she had to have evacuation of the large hematoma, cauterization of multiple bleeding blood vessels in the brain, and she has a plate in her head. There are multiple reasons why she could be having seizure activity. When I discussed this, she states she is also on carbamazepine but forgot to bring it and added to her medication list. She states the seizures that she had in the past were convulsions, she has not had any of those recently. I did obtain blood work as well as a carbamazepine level, the latter is actually on the high side. This does not rule out the possibility of an atypical seizure due to cerebral irritation. Her potassium is low so we addressed that and gave her some potassium while we were waiting for CT results to return. I discussed with the patient's multiple times that I would not recommend that myself or any other emergency physician alter her mental health medications. Her primary care physician can do that or if they are not comfortable, refer her to psychiatry for further management. It is possible that the symptoms could be related to her new medication since she seems to think her symptoms started around the time she changed her medicines. I reviewed the CT images as well as the result which I agree with, basically shows stable clipped aneurysm as well as a prior infarct in the posterior aspect of the right cerebrum. Nothing acute. No new aneurysms, leak, or vascular occlusion. While we were waiting for these results she was given the potassium and on reevaluation her vision is almost back to normal. She is reassured advised to follow-up for referral to likely neurology, which she will request to be in [place] which I do not have resources for. History & Record Review Additional record(s) reviewed:: Prior ED visit Lab Data Attestation: I reviewed the patient's lab results. Labs: Laboratory Results - last 24 hr 12/06/23 01:07 WBC 6.4 RBC 4.48 Hgb 13.3 Hct 38.3 MCV 85.5 MCH 29.7 MCHC 34.7 RDW Std Deviation 38.5 RDW Coeff of Chan 12.4 Plt Count 279 MPV 9.2 Immature Gran % (Auto) 0.300 Neut % (Auto) 60.7 Lymph % (Auto) 27.9 Levy % (Auto) 8.3 Eos % (Auto) 2.2 Baso % (Auto) 0.6 Absolute Neuts (auto) 3.9 Absolute Lymphs (auto) 1.78 Nucleated RBC % 0 Sodium 139 Potassium 3.2 L Chloride 106 Carbon Dioxide 24.0 Anion Gap 9 BUN 15 Creatinine 0.92 Estim Creat Clear Calc 56.41 Est GFR (MDRD) Af Amer 80 Est GFR (MDRD) Non-Af 66 BUN/Creatinine Ratio 16.2 Glucose 112 H Calcium 9.1 Carbamazepine 12.9 H Discharge Plan Triage Chief Complaint: Anxiety ED Provider: Ron Daniels Dx/Rx/DC Orders Clinical Impression: Blurred vision, Acute hypokalemia, Anxiety Instructions: ED Blurred Vision Prescriptions: No Action promethazine 25 mg tablet 25 mg PO Q6H PRN (Reason: nausea and vomiting) naproxen 500 mg tablet 500 mg PO BID PRN (Reason: pain) omeprazole 40 mg capsule,delayed release(DR/EC) 40 mg PO DAILY cetirizine 10 mg tablet 10 mg PO HS PRN (Reason: allergy symptoms) Patient Comments: TAKE 1 TABLET BY MOUTH AT BEDTIME Adult 50 Plus Probiotic 4 billion cell capsule 4,000 mmu cells PO DAILY Rx Instructions: administer with a meal fexofenadine [Susan Allergy] 60 mg tablet 60 mg PO BID PRN (Reason: Allergies) cholecalciferol (vitamin D3) 25 mcg (1,000 unit) capsule 25 mcg PO DAILY ascorbic acid (vitamin C) 500 mg capsule 500 mg PO DAILY mecobalamin (vitamin B12) 1,000 mcg tablet,chewable 1,000 mcg PO DAILY flaxseed oil 1,000 mg capsule 1,000 mg PO DAILY Rx Instructions: administer with a meal zinc gluconate 50 mg tablet 50 mg PO DAILY albuterol sulfate 90 mcg/actuation HFA aerosol inhaler 2 inh inhalation Q4H PRN (Reason: shortness of breath or wheezing) Patient Comments: INHALE 2 PUFFS BY MOUTH UP TO 4 TIMES DAILY FOR SHORTNESS OF BREATH OR WHEEZING fluticasone propionate [Flonase Allergy Relief] 50 mcg/actuation spray,suspension 2 spray intranasal DAILY Qty: 16 0RF Rx Instructions: administer into each nostril levothyroxine 100 mcg tablet 100 mcg PO DAILY buspirone 7.5 mg tablet 7.5 mg PO TID trazodone 100 mg tablet 100 mg PO QHS fenofibrate 160 mg tablet 160 mg PO DAILY Qty: 90 0RF hydroxyzine HCl 25 mg tablet 25 mg PO BID Qty: 180 0RF simvastatin 80 mg tablet 80 mg PO DAILY Qty: 90 0RF Primary Care Provider: Lamar Leslie NP Referrals: Lamar Leslie NP, [facility] [Primary Care Provider] - (Follow-up, you need to seek referral to neurosurgery or neurology. You may need further workup for possible seizure activity causing your vision symptoms.) Print Language: Serbian Disposition Disposition: Home, Self Care
--- NOTE | 2023-12-06 01:00 | CT_ITS ---
EXAM: CT ANGIOGRAPHY HEAD AND NECK WITH INTRAVENOUS CONTRAST CLINICAL INDICATION: VISION CHANGES TECHNIQUE: Hoh of [place]/head and neck CT angiography protocol performed with intravenous contrast. This CT exam was performed using one or more of the following dose reduction techniques: automated exposure control, adjustment of the mA and/or kV according to patient size, and/or use of iterative reconstruction technique. MIP reconstructed images were created and reviewed. CONTRAST: 100 cc of Isovue-370 IV. RADIATION DOSE: CTDIvol = 29.25 mGy, DLP = 1357.63 mGy-cm COMPARISON: No relevant prior studies available. FINDINGS: HEAD: RIGHT ANTERIOR CEREBRAL ARTERY: Unremarkable. No occlusion or significant stenosis. Anterior communicating artery is present. No aneurysm. RIGHT MIDDLE CEREBRAL ARTERY: Unremarkable. No occlusion or significant stenosis. No aneurysm. RIGHT POSTERIOR CEREBRAL ARTERY: Unremarkable. No occlusion or significant stenosis. No aneurysm. RIGHT INTRACRANIAL INTERNAL CAROTID ARTERY: Unremarkable. No significant stenosis. No dissection or occlusion. RIGHT INTRACRANIAL VERTEBRAL ARTERY: Unremarkable. No significant stenosis. No dissection or occlusion. LEFT ANTERIOR CEREBRAL ARTERY: Unremarkable. No occlusion or significant stenosis. No aneurysm. LEFT MIDDLE CEREBRAL ARTERY: Unremarkable. No occlusion or significant stenosis. No aneurysm. LEFT POSTERIOR CEREBRAL ARTERY: Unremarkable. No occlusion or significant stenosis. No aneurysm. LEFT INTRACRANIAL INTERNAL CAROTID ARTERY: Unremarkable. No significant stenosis. No dissection or occlusion. LEFT INTRACRANIAL VERTEBRAL ARTERY: Unremarkable. No significant stenosis. No dissection or occlusion. BASILAR ARTERY: Unremarkable. No occlusion or significant stenosis. No aneurysm. OTHER VASCULATURE: No vascular malformation. 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 Aneurysm clip within the prior area of infarct. NECK: RIGHT COMMON CAROTID ARTERY: Unremarkable. No significant stenosis. No dissection or occlusion. RIGHT EXTRACRANIAL INTERNAL CAROTID ARTERY: Unremarkable. No significant stenosis. No dissection or occlusion. RIGHT EXTERNAL CAROTID ARTERY: Unremarkable. No occlusion. RIGHT EXTRACRANIAL VERTEBRAL ARTERY: Unremarkable. No significant stenosis. No dissection or occlusion. LEFT COMMON CAROTID ARTERY: Unremarkable. No significant stenosis. No dissection or occlusion. LEFT EXTRACRANIAL INTERNAL CAROTID ARTERY: Unremarkable. No significant stenosis. No dissection or occlusion. LEFT EXTERNAL CAROTID ARTERY: Unremarkable. No occlusion. LEFT EXTRACRANIAL VERTEBRAL ARTERY: Unremarkable. No significant stenosis. No dissection or occlusion. BRACHIOCEPHALIC AND SUBCLAVIAN ARTERIES: Unremarkable as visualized. No occlusion or significant stenosis. LUNG APICES: Unremarkable as visualized. HEAD and NECK: BONES/JOINTS: Old right parietal craniotomy. No discrete lytic or blastic abnormalities. SOFT TISSUES: Unremarkable. CAROTID STENOSIS REFERENCE USING NASCET CRITERIA: % ICA stenosis = (1 - narrowest ICA diameter/diameter of distal cervical ICA) x 100. Mild - <50% stenosis. Moderate - 50-69% stenosis. Severe - 70-94% stenosis. Near occlusion - 95-99% stenosis. Occluded - 100% stenosis. CT/CTA Head AND Neck W/ Contrast IMPRESSION: 1. 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 Aneurysm clip within the prior area of infarct. 2. No acute intracranial abnormality. Electronically Signed: Rizwan Hummel MD at 2:46 EDT ,
[2023-12-06 01:25] VITALS: BP 142/79; PULSE 88; RESP 17; O2SAT 99
[2023-12-06 01:26] LABS: Absolute Lymphocyte Count 1.78 X10^3/uL (0.83-4.51); Absolute Neutrophil Count 3.9 X10^3/uL (2.0-7.7); Basophil# 0.04 X10^3/uL; Basophil% 0.6 % (0-1); Eosinophil# 0.14 X10^3/uL; Eosinophils% 2.2 % (0-5); Hematocrit 38.3 % (37-47); Hemoglobin 13.3 g/dL (12.0-15.0); Lymphocyte # 1.78 X10^3/ul (0.83-4.51); Lymphocyte % 27.9 % (19-41); Mean Corp Hgb Conc 34.7 g/dL (32-36); Mean Corpuscular Hgb 29.7 pg (27.0-32.0); Mean Corpuscular Volume 85.5 fL (81-99); Mean Platelet Vol. 9.2 fl (6.2-12.0); Monocyte# 0.53 X10^3/uL; Monocyte% 8.3 % (0-10); NRBC Flagged by Analyzer 0 % (0-5); Neutrophil # 3.86 X10^3/uL (2.7-7.7); Neutrophil % 60.7 % (47-70); Platelet Count 279 K/mm3 (150-450); RBC Distribution Width CV 12.4 % (11.6-14.6); RBC Distribution Width SD 38.5 fl (35.1-43.9); Red Blood Count 4.48 M/mm3 (4.2-5.4); White Blood Count 6.4 K/mm3 (4.4-11.0)
[2023-12-06 01:34] LABS: Anion Gap 9 (5-15); BUN 15 mg/dL (7-18); BUN/Creat Ratio 16.2 RATIO (10-20); Calcium,Total 9.1 mg/dL (8.5-10.1); Chloride 106 mmol/L (98-107); Creatinine, Serum 0.92 mg/dL (0.55-1.02); EST Glomerular Filtration Rate 66 mL/min (>60); Est Glom Filt Rate - Afr Amer 80 mL/min (>60); Estimated Creatinine Clearance 56.41 ml/min; Glucose 112 mg/dL (74-106); Potassium 3.2 mmol/L (3.5-5.1); Sodium Level 139 mmol/L (136-145)
[2023-12-06 01:36] LABS: Carbamazepine (Tegretol) 12.9 ug/mL (4.0-12.0)
[2023-12-06] MEDS: Potassium Chloride Oral Tablet 20 MEQ 40 MEQ PO (02:16)
--- NOTE | 2023-12-06 05:43 | ED.RN ---
see downtime charting
== END 2023-12-06 03:27 | disposition home or self-care (01) ==
PROVIDERS: Emergency Provider Emergency Medicine; PCP Nurse Practitioner Family; Visit Provider Emergency Medicine
DX: F41.9 Anxiety disorder, unspecified (principal); R56.9 Unspecified convulsions; E87.6 Hypokalemia; H53.8 Other visual disturbances; E78.5 Hyperlipidemia, unspecified; Z86.73 Personal history of transient ischemic attack (TIA), and cerebral infarction without residual deficits; Z79.899 Other long term (current) drug therapy
CPT/HCPCS: 70496; 70498; 80048; 80156; 85025; 99283; Q9967; A4216

== ENCOUNTER → 2023-12-15 | Outpatient (CLI) | payer MEDICARE, SELFPAY ==
[2023-12-15 16:04] LABS: ALB/GLOB Ratio 1.1 RATIO (0.9-2.4); AST(SGOT) 37 U/L (15-37); Alanine Aminotransfer ALT/SGPT 21 U/L (13-56); Albumin, Serum 4.2 g/dL (3.2-5.0); Alkaline Phosphatase 83 U/L (45-117); Anion Gap 8 (5-15); BUN 16 mg/dL (7-18); BUN/Creat Ratio 17.2 RATIO (10-20); Calcium,Total 9.4 mg/dL (8.5-10.1); Chloride 106 mmol/L (98-107); Creatinine, Serum 0.93 mg/dL (0.55-1.02); EST Glomerular Filtration Rate 66 mL/min (>60); Est Glom Filt Rate - Afr Amer 79 mL/min (>60); Globulin 3.8 g/dL (2.2-4.2); Glucose 110 mg/dL (74-106); Potassium 3.4 mmol/L (3.5-5.1); Sodium Level 137 mmol/L (136-145)
== END | disposition home or self-care (01) ==
LOC: LAB 13:37
PROVIDERS: PCP Nurse Practitioner Family; Referring Provider Nurse Practitioner Family; Visit Provider Nurse Practitioner Family
DX: E87.6 Hypokalemia (principal)
CPT/HCPCS: 36415; 80053

== ENCOUNTER → 2024-01-05 | Outpatient (CLI) | payer MEDICARE, SELFPAY ==
--- NOTE | 2024-01-05 14:41 | BI_ITS ---
MAMMOGRAPHY - BILATERAL SCREENING REASON FOR EXAM: Female, 58 years old. Routine annual screening examination. PERTINENT HISTORY: Grandmother with breast cancer. Remote right excisional breast biopsy. TECHNIQUE: Digital bilateral breast jumana (3D mammographic acquisition) in the CC and MLO projections. 2-D mediolateral oblique (MLO) and craniocaudad (CC) views of both breasts were obtained. CAD: Full Field Digital Mammography with Computer Added Detection was performed. COMPARISON: Comparison is made with prior study dated January 03, 2023 and December 10, 2021. FINDINGS: Breast Composition: There are scattered areas of fibroglandular density. There are no dominant masses or suspicious calcifications. Stable fat-containing axillary lymph nodes. No other significant abnormalities are identified. There has been no significant change since the prior study. BI/SCRN MAMM (CAD)W/JUMANA BILAT IMPRESSION: Stable bilateral screening mammogram. Yearly follow-up mammogram recommended. (A) ASSESSMENT CATEGORY: BIRADS Category 2: Benign. A letter regarding these results will be sent to the patient by the facility within 30 days. Approximately 10% of breast cancers are not detected by mammography. A normal mammogram should not delay biopsy of a clinically suspicious abnormality. [id number] Electronically Signed: Jeff Crowder MD at 15:38 EDT ,
== END | disposition home or self-care (01) ==
LOC: OPBI 14:40
PROVIDERS: PCP Nurse Practitioner Family; Referring Provider Nurse Practitioner Family; Visit Provider Nurse Practitioner Family
DX: Z12.31 Encounter for screening mammogram for malignant neoplasm of breast (principal); Z80.3 Family history of malignant neoplasm of breast
CPT/HCPCS: 77063; 77067

== ENCOUNTER → 2024-04-05 | Outpatient (CLI) | payer MEDICARE, SELFPAY ==
[2024-04-05 13:01] LABS: AST(SGOT) 19 U/L (15-37); Alanine Aminotransfer ALT/SGPT 13 U/L (13-56); Albumin, Serum 3.6 g/dL (3.2-5.0); Alkaline Phosphatase 82 U/L (45-117); Bilirubin, Direct 0.14 mg/dL (0.00-0.30); Globulin 3.4 g/dL (2.2-4.2)
== END | disposition home or self-care (01) ==
LOC: LAB 11:15
PROVIDERS: PCP Nurse Practitioner Family; Referring Provider Nurse Practitioner Family; Visit Provider Nurse Practitioner Family
DX: B35.1 Tinea unguium (principal)
CPT/HCPCS: 36415; 80076

== ENCOUNTER 2024-05-16 14:20 | Outpatient (RCR) | payer MEDICARE, SELFPAY ==
[2024-05-16 16:01] LABS: AST(SGOT) 17 U/L (15-37); Alanine Aminotransfer ALT/SGPT 16 U/L (13-56); Albumin, Serum 3.7 g/dL (3.2-5.0); Alkaline Phosphatase 89 U/L (45-117); Bilirubin, Direct 0.12 mg/dL (0.00-0.30); Globulin 3.2 g/dL (2.2-4.2); Protein, Total 6.9 g/dL (6.4-8.2)
== END 2024-05-16 18:00 | disposition home or self-care (01) ==
LOC: LAB 14:20
PROVIDERS: PCP Nurse Practitioner Family; Referring Provider Nurse Practitioner Family; Visit Provider Nurse Practitioner Family
DX: B35.1 Tinea unguium (principal)
CPT/HCPCS: 36415; 80076

== ENCOUNTER 2024-06-25 14:31 | Outpatient (RCR) | payer MEDICARE, SELFPAY ==
[2024-06-25 16:00] LABS: AST(SGOT) 18 U/L (15-37); Alanine Aminotransfer ALT/SGPT 16 U/L (13-56); Albumin, Serum 3.9 g/dL (3.2-5.0); Alkaline Phosphatase 87 U/L (45-117); Bilirubin, Direct 0.13 mg/dL (0.00-0.30); Globulin 3.7 g/dL (2.2-4.2); Protein, Total 7.6 g/dL (6.4-8.2)
== END 2024-06-25 18:00 | disposition home or self-care (01) ==
LOC: LAB 14:31
PROVIDERS: PCP Nurse Practitioner Family; Referring Provider Nurse Practitioner Family; Visit Provider Nurse Practitioner Family
DX: B35.1 Tinea unguium (principal)
CPT/HCPCS: 36415; 80076

== ENCOUNTER → 2024-12-21 | Outpatient (CLI) | payer MEDICARE, SELFPAY ==
[2024-12-21 09:58] LABS: Hematocrit 40.1 % (37-47); Hemoglobin 14.1 g/dL (12.0-15.0); Mean Corp Hgb Conc 35.2 g/dL (32-36); Mean Corpuscular Hgb 29.7 pg (27.0-32.0); Mean Corpuscular Volume 84.6 fL (81-99); Mean Platelet Vol. 9.4 fl (6.2-12.0); Platelet Count 271 K/mm3 (150-450); RBC Distribution Width CV 12.6 % (11.6-14.6); RBC Distribution Width SD 38.1 fl (35.1-43.9); Red Blood Count 4.74 M/mm3 (4.2-5.4); White Blood Count 3.8 K/mm3 (4.4-11.0)
[2024-12-21 10:22] LABS: Hemoglobin A1c 6.2 % (<=5.6)
[2024-12-21 10:35] LABS: Carbamazepine (Tegretol) 7.5 ug/mL (4.0-12.0)
[2024-12-21 10:41] LABS: ALB/GLOB Ratio 1.7 RATIO (0.9-2.4); AST(SGOT) 24 U/L (<=31); Alanine Aminotransfer ALT/SGPT 10 U/L (<=34); Albumin, Serum 4.5 g/dL (3.5-5.0); Alkaline Phosphatase 95 U/L (35-104); Anion Gap 13 (5-15); BUN 18 mg/dL (4-19); BUN/Creat Ratio 22.3 RATIO (10-20); Calcium,Total 9.3 mg/dL (7.6-11.0); Carbon Dioxide 19.7 mmol/L (21.0-32.0); Chloride 104 mmol/L (98-108); Cholesterol 203 mg/dL (<=200); Creatinine, Serum 0.83 mg/dL (0.70-1.20); EST Glomerular Filtration Rate 82 (>60); Globulin 2.7 g/dL (2.2-4.2); Glucose 122 mg/dL (70-99); High Density Lipoprotein 46 mg/dL; Low Density Lipoprotein Calc. 116 mg/dL; Potassium 3.9 mmol/L (3.3-5.1); Protein, Total 7.2 g/dL (5.9-8.4); Sodium Level 137 mmol/L (133-145); Total Bilirubin 0.34 mg/dL (0.00-1.30); Triglycerides 204 mg/dL; Very Low Density Lipoprotein 41 mg/dL (5-40); cholesterol:hdl ratio screen 4.38
== END | disposition home or self-care (01) ==
LOC: LAB 09:09
PROVIDERS: PCP Nurse Practitioner Family; Referring Provider Nurse Practitioner Family; Visit Provider Nurse Practitioner Family
DX: E78.5 Hyperlipidemia, unspecified (principal); R79.89 Other specified abnormal findings of blood chemistry; E87.6 Hypokalemia; E03.9 Hypothyroidism, unspecified; D84.9 Immunodeficiency, unspecified; R73.09 Other abnormal glucose
CPT/HCPCS: 36415; 80053; 80061; 80156; 83036; 84439; 84443; 85027

== ENCOUNTER → 2025-02-14 | Outpatient (CLI) | payer MEDICARE, SELFPAY ==
--- NOTE | 2025-02-14 15:57 | BI_ITS ---
EXAM: SCRN MAMM (CAD)W/JUMANA BILAT DATE: 02/14/2025 CLINICAL HISTORY: F, Age 59 y/o , SCREENING TECHNIQUE: SCRN MAMM (CAD)W/JUMANA BILAT COMPARISON: Prior exam(s) were compared FINDINGS: TISSUE DENSITY: The breasts are heterogeneously dense, which may obscure small masses. Bilateral Breast Mammographic Findings: No suspicious masses, calcifications or other abnormalities are identified. BI/SCRN MAMM (CAD)W/JUMANA BILAT IMPRESSION: No mammographic evidence of malignancy in either breast. OVERALL FINAL ASSESSMENT BI-RADS 1: NEGATIVE. RECOMMENDATION: Routine annual follow-up in 1 Year A letter with findings and recommendations will be mailed to the patient. Reading Location: [id number]
== END | disposition home or self-care (01) ==
LOC: OPBI 15:56
PROVIDERS: PCP Nurse Practitioner Family; Referring Provider Nurse Practitioner Family; Visit Provider Nurse Practitioner Family
DX: Z12.31 Encounter for screening mammogram for malignant neoplasm of breast (principal)
CPT/HCPCS: 77063; 77067

== ENCOUNTER → 2025-03-07 | Outpatient (CLI) | payer MEDICARE, SELFPAY ==
[2025-03-08 16:09] LABS: ANA- Smooth Homogeneous 1:80 (.)
== END | disposition home or self-care (01) ==
PROVIDERS: PCP Nurse Practitioner Family; Referring Provider Nurse Practitioner Family; Visit Provider Nurse Practitioner Family
DX: M15.1 Heberden's nodes (with arthropathy) (principal)
CPT/HCPCS: 36415; 86038; 86431

== ENCOUNTER 2025-04-02 14:28 | Emergency (ER) | payer MEDICARE, SELFPAY ==
[2025-04-02 14:28] VITALS: BP 153/97; PULSE 101; RESP 18; TEMP 36.6; O2SAT 99; BMI 29.9
[2025-04-02 16:39] VITALS: BP 154/87; PULSE 88; RESP 15; O2SAT 97
--- NOTE | 2025-04-02 16:40 | EX.ED.DYSGE1 ---
HPI History of Present Illness Chief Complaint: General Illness [facility] Medical History Asthma Brain aneurysm Chronic bronchitis Chronic sinus complaints Decreased peripheral vision Frequent headaches History of blood clots History of blood transfusion Hyperlipidemia Seasonal allergies Seizures Stroke Home Medications ?Medication ?Instructions ?Recorded ?Last Taken ?Type albuterol sulfate 90 mcg/actuation 2 inh inhalation Q4H PRN shortness 05/26/23 Unknown History aerosol inhaler of breath or wheezing ascorbic acid (vitamin C) 500 mg 500 mg PO DAILY 05/26/23 Unknown History capsule cetirizine 10 mg tablet 10 mg PO HS PRN allergy symptoms 05/26/23 Unknown History cholecalciferol (vitamin D3) 25 25 mcg PO DAILY 05/26/23 Unknown History mcg (1,000 unit) capsule fexofenadine 60 mg tablet (Susan 60 mg PO BID PRN Allergies 05/26/23 Unknown History Allergy) flaxseed oil 1,000 mg capsule 1,000 mg PO DAILY 05/26/23 Unknown History lactobacillus combination no.9 4 4,000 mmu cells PO DAILY 05/26/23 Unknown History billion cell capsule (Adult 50 Plus Probiotic) mecobalamin (vitamin B12) 1,000 1,000 mcg PO DAILY 05/26/23 Unknown History mcg chewable tablet naproxen 500 mg tablet 500 mg PO BID PRN pain 05/26/23 Unknown History omeprazole 40 mg capsule,delayed 40 mg PO DAILY 05/26/23 Unknown History release promethazine 25 mg tablet 25 mg PO Q6H PRN nausea and 05/26/23 Unknown History vomiting zinc gluconate 50 mg tablet 50 mg PO DAILY 05/26/23 Unknown History fenofibrate 160 mg tablet 160 mg PO DAILY #90 tabs 06/28/23 Unknown Rx hydroxyzine HCl 25 mg tablet 25 mg PO BID #180 tabs 06/28/23 Unknown Rx simvastatin 80 mg tablet 80 mg PO DAILY #90 tabs 06/28/23 Unknown Rx fluticasone propionate 50 2 spray intranasal DAILY #16 grams 07/07/23 Unknown Rx mcg/actuation nasal spray,suspension (Flonase Allergy Relief) buspirone 7.5 mg tablet 7.5 mg PO TID 12/05/23 Unknown History levothyroxine 100 mcg tablet 100 mcg PO DAILY 12/05/23 Unknown History trazodone 100 mg tablet 100 mg PO QHS 12/06/23 Unknown History Allergy/AdvReac Type Severity Reaction Status Date / Time Penicillins (PCN) Allergy Anaphylaxis Verified 04/02/25 14:31 Sulfa (Sulfonamide Allergy Rash Verified 04/02/25 14:31 Antibiotics) erythromycin base AdvReac Upset Verified 04/02/25 14:31 Stomach Family History Mother , Due to brain aneurysm Diabetes Heart disease Hypertension Father , Due to brain aneurysm Diabetes Heart disease Myocardial infarction Hyperlipidemia Brother Diabetes Hypertension Kidney disease Grandfather Brain aneurysm Surgical History H/O brain surgery H/O tracheostomy Social History household members: none current occupational status: disabled 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 Smoking Status: Never smoker Electronic Cigarette Use: not used alcohol intake: current alcohol intake frequency: holidays/special occasions only substance use type: does not use do you feel safe at home: Yes EXAM Physical Exam Const Vital Signs: 04/02/25 14:28 04/02/25 16:23 04/02/25 16:39 Temperature 98 F Temperature Source Oral Pulse Rate 101 H 88 Respiratory Rate 18 15 Respiratory Effort Normal Non-Labored Respiratory Pattern Normal Blood Pressure 153/97 H 154/87 H Blood Pressure Mean 115 109 Pulse Ox 99 97 Oxygen Delivery Method Room Air Room Air 04/02/25 18:00 04/02/25 19:01 Temperature 98 F Temperature Source Pulse Rate 70 70 Respiratory Rate 18 18 Respiratory Effort Respiratory Pattern Blood Pressure 134/80 H 134/80 H Blood Pressure Mean 98 98 Pulse Ox 98 98 Oxygen Delivery Method MDM MDM MDM Narrative Medical decision making narrative: HISTORY OF PRESENT ILLNESS: Chief complaint: Dizziness, lightheadedness 59-year-old female history of brain aneurysm, GERD, anxiety and depression presents with concern for intermittent dizziness and lightheadedness. She states typically she gets anxious she gets dizzy and lightheaded. She has been ongoing for the last year or so. Most recently today. She notes she called her doctor told her to come to ED to be evaluated. She endorsed history of being evaluated in November. She notes results were negative at that time. REVIEW OF SYSTEMS: Pertinent positives: Dizziness lightheadedness Pertinent negatives: Chest pain, shortness of breath PHYSICAL EXAM: Nursing triage notes reviewed, Vital signs reviewed Constitutional: please see [facility] HENT: MMM Eyes: Pupils equal round and reactive to light, Extraocular muscles intact Neck: No stridor, no JVD, full neck ROM Lungs: Clear to auscultation, No wheezing or rales. No increased work of breathing, no conversational dyspnea, no accessory muscle use, no nasal flaring. No respiratory distress noted Heart: Regular rate and rhythm, No murmurs, No rubs and No gallops, 2+ distal pulses (radial, femoral, posterior tibial) in all extremities Abdomen: Soft, there is no tenderness, rigidity, rebound or guarding, no obvious peritoneal signs, no palpable pulsatile abdominal masses, no auscultated abdominal bruit : No CVAT Extremities: No edema Neuro: Alert and oriented x3, neuro exam at baseline, cranial nerves II through XII are intact. No pain with extraocular muscle movement. There is negative test of skew. 5 of 5 strength in upper and lower extremities in flexion extension. Intact sensation to light touch in upper and lower extremity dermatomes. No truncal or extremity ataxia. No dysdiadochokinesia. Normal gait. 2+ reflexes in upper and lower extremities. No meningeal signs. Negative Babinski. NIH of 0. Skin: No rash or lesions noted MEDICAL DECISION MAKING: Chief Complaint: please see HPI External records reviewed: Reviewed prior imaging studies. Reviewed prior CT of the head and neck Factors affecting care: History of CVA, seizures, hyperlipidemia, frequent headaches, brain aneurysm, asthma Social determinants of health: none History obtained from others: none Consults: none [facility] Narrative: The patient was initially hemodynamically stable, afebrile and nontoxic-appearing. Exam without focal neurologic deficits. NIH of 0 I considered the following differential diagnosis: ICH, arrhythmia, anemia, electro disturbance, ACS Given history of brain aneurysm I obtained a broad lab and imaging work to further determine if the patient was suffering from a life-threatening etiology. ALL IMAGES (IF OBTAINED) HAVE BEEN PERSONALLY REVIEWED AND INTERPRETED BY MYSELF. EKG with normal sinus rhythm rate of 83, normal axis, normal intervals, no STEMI CBC without leukocytosis, severe anemia, no thrombocytopenia. BMP without evidence of significant electrolyte abnormalities, no anion gap, no acute kidney injury. LFTs show no evidence of hepatobiliary pathology. Urinalysis shows no evidence of urinary inflammation suggestive of UTI I have personally reviewed the patient's chest x-ray. Chest x-ray is unremarkable for pulmonary edema, pneumothorax, pneumonia or focal cardiopulmonary abnormality. CT scan of the brain was negative The synthesis of the patient's history, physical exam, labs and imaging studies suggest no acute life-limiting etiology. Unknown etiology however does not appear to be life-threatening. The patient is appropriate for discharge home. The patient and/or family, caregivers express understanding. The patient and/or family, caregivers agrees with the plan. Shared decision making: I will have a discussion with the patient and or visitors regarding risk/benefits of further testing or admission. They will be made aware of of the risk/benefits inherent in this decision they will be given the opportunity to voice understanding. Total critical care time today provided was at least 0 minutes. This excludes separately billable procedures. Critical care time (if documented) is secondary to the patient having high probability of clinically significant/life threatening deterioration in the patient's condition which required my urgent intervention. Impression: 1. Dizziness 2. Lightheadedness 3. History of brain aneurysm Dispo: Discharge home This note was generated with [employer] dictation software. It may contain incorrect words, spelling, and punctuation that were not noted in review of the chart prior to signing. Lab Data Labs: Laboratory Results - last 24 hr 04/02/25 04/02/25 16:46 16:57 WBC 6.3 RBC 4.81 Hgb 14.3 Hct 40.3 MCV 83.8 MCH 29.7 MCHC 35.5 RDW Std Deviation 38.6 RDW Coeff of Chan 12.7 Plt Count 274 MPV 9.3 Immature Gran % (Auto) 0.200 Neut % (Auto) 64.9 Lymph % (Auto) 24.2 Weld % (Auto) 8.3 Eos % (Auto) 1.9 Baso % (Auto) 0.5 Absolute Neuts (auto) 4.1 Absolute Lymphs (auto) 1.52 Nucleated RBC % 0 Sodium 138 Potassium 3.5 Chloride 102 Carbon Dioxide 19.9 L Anion Gap 15 BUN 19 Creatinine 0.83 Estim Creat Clear Calc 63.55 Est GFR (MDRD) Non-Af 82 BUN/Creatinine Ratio 22.6 H Glucose 104 H Calcium 9.4 Total Bilirubin 0.30 AST 29 ALT 12 Alkaline Phosphatase 99 Troponin T High Sens < 6 Total Protein 7.4 Albumin 4.5 Globulin 2.9 Albumin/Globulin Ratio 1.5 Urine Color Yellow Urine Clarity Clear Urine pH 7.0 Ur Specific [place] 1.010 Urine Protein 30 H Urine Glucose (UA) Normal Urine Ketones Negative Urine Occult Blood Negative Urine Nitrite Negative Urine Bilirubin 1 H Urine Urobilinogen Normal Ur Leukocyte Esterase 25 H Urine RBC 0 SEEN Urine WBC 0-5 SEEN Ur Squamous Epith Cells 0-5 SEEN Urine Bacteria 0 SEEN Urine Mucus 0 SEEN Radiography Diagnostic Testing: Clinical Impression(s) from Imaging Studies Brain CT 04/02/25 16:53 IMPRESSION: No acute intracranial abnormality. 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 Reading Location: [facility] Chest X-Ray 04/02/25 17:08 IMPRESSION: No Acute Findings. Reading Location: [facility] Discharge Plan Triage Chief Complaint: General Illness ED Provider: Kendall White Dx/Rx/DC Orders Clinical Impression: Dizziness Instructions: ED Dizziness, Uncertain Cause Prescriptions: No Action promethazine 25 mg tablet 25 mg PO Q6H PRN (Reason: nausea and vomiting) naproxen 500 mg tablet 500 mg PO BID PRN (Reason: pain) omeprazole 40 mg capsule,delayed release(DR/EC) 40 mg PO DAILY cetirizine 10 mg tablet 10 mg PO HS PRN (Reason: allergy symptoms) Patient Comments: TAKE 1 TABLET BY MOUTH AT BEDTIME Adult 50 Plus Probiotic 4 billion cell capsule 4,000 mmu cells PO DAILY Rx Instructions: administer with a meal fexofenadine [Susan Allergy] 60 mg tablet 60 mg PO BID PRN (Reason: Allergies) cholecalciferol (vitamin D3) 25 mcg (1,000 unit) capsule 25 mcg PO DAILY ascorbic acid (vitamin C) 500 mg capsule 500 mg PO DAILY mecobalamin (vitamin B12) 1,000 mcg tablet,chewable 1,000 mcg PO DAILY flaxseed oil 1,000 mg capsule 1,000 mg PO DAILY Rx Instructions: administer with a meal zinc gluconate 50 mg tablet 50 mg PO DAILY albuterol sulfate 90 mcg/actuation HFA aerosol inhaler 2 inh inhalation Q4H PRN (Reason: shortness of breath or wheezing) Patient Comments: INHALE 2 PUFFS BY MOUTH UP TO 4 TIMES DAILY FOR SHORTNESS OF BREATH OR WHEEZING fluticasone propionate [Flonase Allergy Relief] 50 mcg/actuation spray,suspension 2 spray intranasal DAILY Qty: 16 0RF Rx Instructions: administer into each nostril levothyroxine 100 mcg tablet 100 mcg PO DAILY buspirone 7.5 mg tablet 7.5 mg PO TID trazodone 100 mg tablet 100 mg PO QHS fenofibrate 160 mg tablet 160 mg PO DAILY Qty: 90 0RF hydroxyzine HCl 25 mg tablet 25 mg PO BID Qty: 180 0RF simvastatin 80 mg tablet 80 mg PO DAILY Qty: 90 0RF Primary Care Provider: Lamar Leslie NP Referrals: Yo Chandra MD [Non-Staff -Ordering Privileges] - Activity Restrictions/Additional Instructions: Thank you for trusting us with your care today! Your labs images are reassuring. There is no sign of a life or limb threatening etiology noted in your brain or associated with your heart, blood counts, electrolytes, kidney function, liver function or your urine Please drink plenty of fluids. Please return to the emergency department if your symptoms change or worsen. Please follow with your primary care physician and/or neurology at the next available appointment for further outpatient evaluation and management. Print Language: Setswana Disposition Disposition: Home, Self Care Discharge Date/Time: 04/02/25 19:26
--- NOTE | 2025-04-02 16:53 | CT_ITS ---
PROCEDURE: CT BRAIN/HEAD WITHOUT CONTRAST 04/02/2025 REASON FOR EXAM: DIZZINESS TECHNIQUE: Procedure Code: CTBR Modality: CT Procedure: BRAIN/HEAD WITHOUT CONTRAST Coronal and Sagittal reconstruction series were provided. One or more dose reduction techniques were used (e.g., Automated exposure control, adjustment of the mA and/or kV according to patient size, use of iterative reconstruction technique. RADIATION DOSE SUMMARY: CTDlvol: 44.99 mGy DLP: 711.75 mGycm COMPARISON: 01/20/2023. FINDINGS: No acute intracranial hemorrhage, extra-axial collection, mass effect or evidence of acute infarct. Stable appearance of chronic encephalomalacia/gliosis in the right parieto- occipital region with metallic aneurysm clip in this location. Stable ventricular caliber. Unremarkable orbits. Intact skull base and calvarium. Prior right parietal craniotomy. Well-aerated paranasal sinuses and bilateral mastoid air cells. CT/Brain/Head without Contrast IMPRESSION: No acute intracranial abnormality. Stable appearing chronic encephalomalacia/g liosis in the right parieto-occipital lobe with metallic aneurysm clip in place. Reading Location: [facility]
--- NOTE | 2025-04-02 17:08 | RAD_ITS ---
PROCEDURE: CHEST 1 VIEW (PORTABLE) 04/02/2025 REASON FOR EXAM: DIZZINESS TECHNIQUE: Frontal view of the chest. COMPARISON: 03/06/2022 FINDINGS: LUNGS AND PLEURA: The lungs are clear. No pleural effusion or pneumothorax. HEART AND MEDIASTINUM: The heart size and mediastinal contours are normal. BONES: No acute osseous abnormality. RAD/Chest 1 View (Portable) IMPRESSION: No Acute Findings. Reading Location: [id number]
[2025-04-02 17:10] LABS: Mucous, Urine 0 SEEN /hpf (<or=2+); Red Blood Cells-Urine 0 SEEN /hpf (0-5)
[2025-04-02 17:33] LABS: Hematocrit 40.3 % (37-47); Hemoglobin 14.3 g/dL (12.0-15.0); Immature Granulocytes Count 0.010 X10^3/uL (0.0-0.0); Mean Corp Hgb Conc 35.5 g/dL (32-36); Mean Corpuscular Volume 83.8 fL (81-99); Mean Platelet Vol. 9.3 fl (6.2-12.0); NRBC Flagged by Analyzer 0 % (0-5); Platelet Count 274 K/mm3 (150-450); RBC Distribution Width CV 12.7 % (11.6-14.6); RBC Distribution Width SD 38.6 fl (35.1-43.9); Red Blood Count 4.81 M/mm3 (4.2-5.4); White Blood Count 6.3 K/mm3 (4.4-11.0)
[2025-04-02 17:36] LABS: AST(SGOT) 29 U/L (<=31); Alanine Aminotransfer ALT/SGPT 12 U/L (<=34); Albumin, Serum 4.5 g/dL (3.5-5.0); Alkaline Phosphatase 99 U/L (35-104); BUN 19 mg/dL (4-19); BUN/Creat Ratio 22.6 RATIO (10-20); Calcium,Total 9.4 mg/dL (7.6-11.0); Carbon Dioxide 19.9 mmol/L (21.0-32.0); Chloride 102 mmol/L (98-108); Estimated Creatinine Clearance 63.55 ml/min (50-250); Globulin 2.9 g/dL (2.2-4.2); Glucose 104 mg/dL (70-99); Potassium 3.5 mmol/L (3.3-5.1)
[2025-04-02 17:37] LABS: Anion Gap 15 (5-15)
[2025-04-02 17:38] LABS: Color, Urine Yellow (Yellow); Glucose, Dipstick Normal (Normal); Ketone-Dipstick Negative (Negative); Leukocyte Esterase-Dipstick 25 /ul (Negative); Nitrite-Dipstick Negative (Negative); Occult Blood-Urine Negative /ul (Negative); Protein-Dipstick 30 mg/dl (Negative); Specific Gravity, Urine 1.010 (1.002-1.030)
[2025-04-02 17:51] LABS: Troponin T High Sensitivity < 6 ng/L (<=14)
[2025-04-02 17:51] LABS: Urine Bilirubin Dipstick 1 mg/dL (Negative)
[2025-04-02 17:52] LABS: Squamous Epithelial Cells - UA 0-5 SEEN /hpf (5-10)
[2025-04-02 18:00] VITALS: BP 134/80; PULSE 70; RESP 18; O2SAT 98
[2025-04-02 19:01] VITALS: BP 134/80; PULSE 70; RESP 18; TEMP 36.6; O2SAT 98
== END 2025-04-02 19:26 | disposition home or self-care (01) ==
PROVIDERS: Emergency Provider Emergency Medicine; PCP Nurse Practitioner Family; Visit Provider Emergency Medicine
DX: R42 Dizziness and giddiness (principal); F41.9 Anxiety disorder, unspecified; Z86.73 Personal history of transient ischemic attack (TIA), and cerebral infarction without residual deficits; E78.5 Hyperlipidemia, unspecified; Z79.899 Other long term (current) drug therapy; J45.909 Unspecified asthma, uncomplicated; Z79.51 Long term (current) use of inhaled steroids; Z86.79 Personal history of other diseases of the circulatory system
CPT/HCPCS: 70450; 71045; 80053; 81001; 84484; 85025; 93005; 99284; A4216

== ENCOUNTER → 2025-05-23 | Outpatient (CLI) | payer MEDICARE, SELFPAY ==
[2025-05-23 15:13] LABS: Hematocrit 39.8 % (37-47); Hemoglobin 14.2 g/dL (12.0-15.0); Mean Corp Hgb Conc 35.7 g/dL (32-36); Mean Corpuscular Volume 82.6 fL (81-99); Mean Platelet Vol. 9.5 fl (6.2-12.0); Platelet Count 284 K/mm3 (150-450); RBC Distribution Width CV 12.7 % (11.6-14.6); RBC Distribution Width SD 38.5 fl (35.1-43.9); Red Blood Count 4.82 M/mm3 (4.2-5.4); White Blood Count 3.7 K/mm3 (4.4-11.0)
[2025-05-23 19:00] LABS: AST(SGOT) 22 U/L (<=31); Alanine Aminotransfer ALT/SGPT 8 U/L (<=34); Albumin, Serum 4.6 g/dL (3.5-5.0); Alkaline Phosphatase 85 U/L (35-104); Anion Gap 15 (5-15); BUN 16 mg/dL (4-19); BUN/Creat Ratio 17.3 RATIO (10-20); Calcium,Total 10.1 mg/dL (7.6-11.0); Carbon Dioxide 22.2 mmol/L (21.0-32.0); Chloride 104 mmol/L (98-108); Cholesterol 219 mg/dL (<=200); Free T3 2.4 pg/mL (2.18-3.98); Globulin 3.0 g/dL (2.2-4.2); Glucose 125 mg/dL (70-99); Low Density Lipoprotein Calc. 125 mg/dL; Potassium 3.1 mmol/L (3.3-5.1); Triglycerides 237 mg/dL; Very Low Density Lipoprotein 47 mg/dL (5-40); Vitamin D,25 Hydroxy 41.8 ng/mL (30-100); cholesterol:hdl ratio screen 4.17
== END | disposition home or self-care (01) ==
LOC: MFPLAB 14:00
PROVIDERS: PCP Nurse Practitioner Family; Visit Provider Family Medicine
DX: G47.00 Insomnia, unspecified (principal); E78.5 Hyperlipidemia, unspecified; E03.9 Hypothyroidism, unspecified; R73.03 Prediabetes
CPT/HCPCS: 36415; 80053; 80061; 82306; 83036; 84439; 84443; 84481; 85027